=== PATIENT | male | born 1950 | race Caucasian/White ===

== ENCOUNTER → 2018-09-14 | Outpatient (REF) | payer MEDICARE, BC ==
[~2018-09-14] MED LIST: ALLOPURINOL300 MG PO; ASPIRIN LOW DOS81 M2 PO; B COMPLE3 PO; B/P MED; GABAPENTIN300 MG PO; GLUCOPHAGE1000 MG OR; GLYBURIDE2.5 M1 PO; JANUMET1 TA1 PO; LANTUS100 MG/ML SC; LATANOPROST0.005 % OP; LEVAQUIN500 MG PO; LIPITOR40 MG PO; MECLIZINE25 MG PO; MOTRIN600 MG/TAB PO; NOVOLOG FLEXPEN SC; OMEGA-2 PO; PERCOCET 5/321 COMBO PO; PERCOCET 5/325M1 TAB PO; QUINAPRIL20 MG PO; VALSARTAN160 MG PO
== END | disposition home or self-care (01) ==
LOC: DI 09:48
PROVIDERS: ATTEND Internal Medicine
DX: M54.5 Low back pain (principal); M51.36 Other intervertebral disc degeneration, lumbar region

== ENCOUNTER → 2018-09-15 | Outpatient (REF) | payer MEDICARE, BC ==
[2018-09-15 08:04] LABS: HEMATOCRIT 40.2 % (39.0-50.0); HEMOGLOBIN 13.4 g/dl (14.0-18.0); MEAN CELL VOLUME 97.8 fL CALC (80.0-100.0); MEAN CORPUSCULAR HGB 32.6 pG CALC (26.0-32.0); MEAN CORPUSCULAR HGB CONC 33.3 g/L CALC (32.0-36.0); RED BLOOD COUNT 4.11 mill/uL (4.70-6.10); RED CELL DISTRI WIDTH 12.3 % (11.5-15.5)
[2018-09-15 08:23] LABS: ALBUMIN 3.8 g/dL (3.2-5.0); ALKALINE PHOSPHATASE 85 u/l (38-126); ANION GAP 14 (6-22 (CALC)); BILIRUBIN, TOTAL 0.8 mg/dL (0.0-1.4); BUN 22 mg/dL (8-23); BUN/CREATININE RATIO 17 (12-20 (CALC)); CALCULATED LDLCHOLESTEROL 53 mg/dL (62-129 (CALC)); CARBON DIOXIDE 26 mmol/l (22-30); CHLORIDE 107 mmol/l (95-108); CHOLESTEROL HDL RATIO 2.4 (<4.4 (CALC)); CREATININE 1.3 mg/dL (0.7-1.3); GFR 55 ML/MIN (>=60 (CALC)); GFR FOR AFR.AMER. > 60 ML/MIN (>=60 (CALC)); HDL CHOLESTEROL 47 mg/dL (>=40); POTASSIUM 4.8 mmol/l (3.5-5.1); SGOT/AST 17 u/l (19-48); SODIUM 142 mmol/l (137-146); TOTAL CHOLESTEROL 112 mg/dl (0-199); TOTAL PROTEIN 6.6 g/dL (6.3-8.2); TOTAL TRIGLYCERIDES 61 mg/dl (30-149); VLDL CHOLESTROL 12 mg/dl (4-45 (CALC))
== END | disposition home or self-care (01) ==
LOC: LAB 07:01
PROVIDERS: ATTEND Internal Medicine
DX: E11.65 Type 2 diabetes mellitus with hyperglycemia (principal); G62.9 Polyneuropathy, unspecified; M19.042 Primary osteoarthritis, left hand; N18.3 Chronic kidney disease, stage 3 (moderate)

== ENCOUNTER 2019-08-29 07:09 | Inpatient (IN) | payer MEDICARE, BC, OTHER ==
[~2019-08-29] VITALS: Ht 180.3 cm; Wt 130.0 kg
[2019-08-29] MEDS ORDERED: TRESIBA100 UNIT/M SC (07:43)
[2019-08-29] MEDS ORDERED: OZEMPIC2 MG/1.5 M SC (07:44)
[2019-08-29] MEDS ORDERED: HUMALOG100 UNIT/M SC (07:45)
[2019-08-29] MEDS ORDERED: OMEPRAZOLE10 MG PO (07:45)
[2019-08-29] MEDS ORDERED: LYRICA50 MG PO (07:46)
[2019-08-29] MEDS ORDERED: ROPINIROLE0.5 MG PO (07:47)
[2019-08-29] MEDS ORDERED: FUROSEMIDE20 MG PO (07:48)
[2019-08-29 08:16] LABS: HEMATOCRIT 42.3 % (39.0-50.0); HEMOGLOBIN 13.8 g/dl (14.0-18.0); IMMATURE GRANULOCYTES 0.4 % (0.0-5.0); MEAN CELL VOLUME 95.1 fL CALC (80.0-100.0); MEAN CORPUSCULAR HGB CONC 32.6 g/L CALC (32.0-36.0); NEUT# 8.73 thou/uL (1.82-7.42); RED BLOOD COUNT 4.45 mill/uL (4.70-6.10); RED CELL DISTRI WIDTH 12.3 % (11.5-15.5)
[2019-08-29 08:28] LABS: URINE BILIRUBIN - DIPSTICK NEGATIVE (NEGATIVE); URINE BLOOD DIPSTICK NEGATIVE (NEGATIVE); URINE COLOR YELLOW; URINE GLUCOSE - DIPSTICK NEGATIVE (NEGATIVE); URINE KETONE NEGATIVE (NEGATIVE); URINE LEUK ESTERASE NEGATIVE (NEGATIVE); URINE NITRITE - DIPSTICK NEGATIVE (Negative); URINE PH 5.5 (4.5-8.0); URINE PROTEIN - DIPSTICK NEGATIVE (NEG-TRACE); URINE SPECIFIC GRAVITY 1.025; URINE UROBILINOGEN - DIPSTICK 0.2 E.U./dL (0.2)
[2019-08-29 08:33] LABS: ALBUMIN 3.8 g/dL (3.2-5.0); CREATININE 1.5 mg/dL (0.7-1.3); POTASSIUM 4.2 mmol/l (3.5-5.1)
[2019-08-29 08:36] LABS: BILIRUBIN, TOTAL 1.7 mg/dL (0.0-1.4)
[2019-08-29 08:54] LABS: PROTHROMBIN TIME 10.9 SECONDS (9.0-12.5)
[2019-08-29 11:35] VITALS: BP 123/65
[2019-08-29 15:20] VITALS: BP 134/65
[2019-08-29 19:17] VITALS: BP 161/42
[2019-08-30 00:04] VITALS: BP 119/46
[2019-08-30 04:02] VITALS: BP 115/63
[2019-08-30 06:39] LABS: HEMATOCRIT 37.6 % (39.0-50.0); HEMOGLOBIN 11.9 g/dl (14.0-18.0); IMMATURE GRANULOCYTES 0.2 % (0.0-5.0); MEAN CELL VOLUME 97.7 fL CALC (80.0-100.0); MEAN CORPUSCULAR HGB 30.9 pG CALC (26.0-32.0); MEAN CORPUSCULAR HGB CONC 31.6 g/L CALC (32.0-36.0); NEUT# 6.4 thou/uL (1.82-7.42); RED BLOOD COUNT 3.85 mill/uL (4.70-6.10); RED CELL DISTRI WIDTH 12.3 % (11.5-15.5)
[2019-08-30 07:01] LABS: ANION GAP 12 (6-22 (CALC)); BUN 20 mg/dL (8-23); BUN/CREATININE RATIO 14 (12-20 (CALC)); CARBON DIOXIDE 24 mmol/l (22-30); CHLORIDE 107 mmol/l (95-108); CREATININE 1.4 mg/dL (0.7-1.3); GFR 50 ML/MIN (>=60 (CALC)); GFR FOR AFR.AMER. > 60 ML/MIN (>=60 (CALC)); POTASSIUM 4.3 mmol/l (3.5-5.1); SODIUM 139 mmol/l (137-146)
[2019-08-30 08:00] VITALS: BP 122/39
[2019-08-30 10:35] VITALS: BP 121/62
[2019-08-30] MEDS ORDERED: HUMALOG100 UNIT/M SC (15:51)
[2019-08-30 16:20] VITALS: BP 131/64
[2019-08-30 18:52] VITALS: BP 152/64
[2019-08-31 00:22] VITALS: BP 154/58
[2019-08-31 03:29] VITALS: BP 145/53
[2019-08-31 06:09] LABS: HEMATOCRIT 36.6 % (39.0-50.0); HEMOGLOBIN 11.8 g/dl (14.0-18.0); IMMATURE GRANULOCYTES 0.4 % (0.0-5.0); MEAN CELL VOLUME 96.1 fL CALC (80.0-100.0); MEAN CORPUSCULAR HGB CONC 32.2 g/L CALC (32.0-36.0); NEUT# 4.3 thou/uL (1.82-7.42); RED BLOOD COUNT 3.81 mill/uL (4.70-6.10); RED CELL DISTRI WIDTH 12.2 % (11.5-15.5)
[2019-08-31 06:20] LABS: ANION GAP 11 (6-22 (CALC)); BUN 17 mg/dL (8-23); BUN/CREATININE RATIO 13 (12-20 (CALC)); CARBON DIOXIDE 21 mmol/l (22-30); CHLORIDE 110 mmol/l (95-108); CREATININE 1.2 mg/dL (0.7-1.3); GFR 60 ML/MIN (>=60 (CALC)); GFR FOR AFR.AMER. > 60 ML/MIN (>=60 (CALC)); MAGNESIUM 1.7 mg/dL (1.6-2.3); POTASSIUM 4.3 mmol/l (3.5-5.1); SODIUM 138 mmol/l (137-146)
[2019-08-31 10:50] VITALS: BP 150/74
[2019-08-31 16:11] VITALS: BP 158/69
[2019-08-31 19:00] VITALS: BP 150/59
[2019-09-01 00:04] VITALS: BP 114/53
[2019-09-01 03:35] VITALS: BP 149/58
[2019-09-01 05:17] LABS: HEMATOCRIT 36.7 % (39.0-50.0); HEMOGLOBIN 12.1 g/dl (14.0-18.0); MEAN CELL VOLUME 95.3 fL CALC (80.0-100.0); MEAN CORPUSCULAR HGB 31.4 pG CALC (26.0-32.0); RED BLOOD COUNT 3.85 mill/uL (4.70-6.10); RED CELL DISTRI WIDTH 12.2 % (11.5-15.5)
[2019-09-01 08:00] VITALS: BP 112/56
[2019-09-01 11:21] VITALS: BP 152/48
[2019-09-01] MEDS ORDERED: VANCOMYCIN HCL125 M1 PO (12:45)
== END 2019-09-01 13:47 | disposition home or self-care (01) | DRG 372 ==
LOC: ED 07:09 → ED-I 09:52 → ED 09:57 → MS2 10:07
PROVIDERS: Internal Medicine; Nurse Practitioner Family; ADMIT Internal Medicine; ATTEND Internal Medicine
DX: A04.72 Enterocolitis due to Clostridium difficile, not specified as recurrent (principal); N17.9 Acute kidney failure, unspecified; I10 Essential (primary) hypertension; E11.51 Type 2 diabetes mellitus with diabetic peripheral angiopathy without gangrene; M19.90 Unspecified osteoarthritis, unspecified site; E78.5 Hyperlipidemia, unspecified; Z79.4 Long term (current) use of insulin; Z95.820 Peripheral vascular angioplasty status with implants and grafts
CPT/HCPCS: G0378; Q9967

== ENCOUNTER 2024-02-11 11:09 | Emergency (ER) | payer MEDICARE, BC, OTHER ==
[~2024-02-11] VITALS: Ht 180.3 cm; Wt 116.0 kg
[~2024-02-11 11:09] MED LIST changes: +FUROSEMIDE20 MG PO; +HUMALOG100 UNIT/M SC; +LYRICA50 MG PO; +OMEPRAZOLE10 MG PO; +OZEMPIC2 MG/1.5 M SC; +ROPINIROLE0.5 MG PO; +TRESIBA100 UNIT/M SC; +VANCOMYCIN HCL125 M1 PO
[2024-02-11 11:35] VITALS: BP 106/46
[2024-02-11 11:37] VITALS: BP 113/49
[2024-02-11 11:41] VITALS: BP 114/55
[2024-02-11] MEDS ORDERED: Diph, Acellular Pertussis, Tet 0.5 ML/VIAL (Tdap) SDV IM ONE (11:45)
[2024-02-11 12:00] VITALS: BP 130/61
[2024-02-11 12:30] VITALS: BP 133/63
[2024-02-11 12:35] VITALS: BP 130/61
== END 2024-02-11 12:40 | disposition home or self-care (01) ==
LOC: ED 11:09
PROC: 0HQGXZZ Repair Left Hand Skin, External Approach (ICD-10-PCS; principal; 2024-02-11)
DX: S61.412A Laceration without foreign body of left hand, initial encounter (principal); I10 Essential (primary) hypertension; E11.9 Type 2 diabetes mellitus without complications; W45.0XXA Nail entering through skin, initial encounter; Y92.009 Unspecified place in unspecified non-institutional (private) residence as the place of occurrence of the external cause; Z79.82 Long term (current) use of aspirin; Z79.4 Long term (current) use of insulin; Z79.85 Long-term (current) use of injectable non-insulin antidiabetic drugs